=== PATIENT | male | born 1955 | race Caucasian/White ===

== ENCOUNTER 2020-12-01 22:11 | Emergency (ER) | payer MEDICARE, OTHER, MEDICAID, SELFPAY ==
[2020-12-01 22:25] VITALS: BP 166/95; PULSE 129; RESP 26; TEMP 36.8; O2SAT 99
--- NOTE | 2020-12-01 22:46 | DI.RAD.S_ITS ---
PROCEDURE: XR CHEST 1V INDICATIONS: suspected sepsis TECHNIQUE: One view of the chest was acquired. COMPARISON: None. FINDINGS: Surgical changes and devices: None. Lungs and pleura: Lungs are clear. No pleural effusions or pneumothorax. Mediastinum: Mediastinal contours appear normal. Heart size is normal. Bones and chest wall: Chronic left rib fractures. No suspicious bony lesions. Overlying soft tissues appear unremarkable. IMPRESSION: No acute process. Concordant with preliminary interpretation. Dictated by: Ileana Bahena M.D. on 12/02/2020 at 7:55 Approved by: Ileana Bahena M.D. on 12/02/2020 at 7:56
--- NOTE | 2020-12-01 22:46 | DI.RAD.S_ITS ---
PROCEDURE: XR WRIST RT MIN 3V INDICATIONS: R wrist pain/swelling/redness TECHNIQUE: 3 views of the wrist were acquired. COMPARISON: None. FINDINGS: Bones: No fractures or dislocations. No suspicious bony lesions. Subchondral lucencies within the proximal scaphoid, lunate, and capitate are present Scaphoid view: Not requested Soft tissues: No suspicious soft tissue calcifications. IMPRESSION: 1. Subchondral cysts versus enchondromas within the carpal bones. 2. No acute fracture. No osseous lesion. If symptoms and/or clinical suspicion for pathology persist, further assessment with repeat, or advanced imaging (e.g., CT, MRI, or bone scan) may be helpful for further assessment. 3. Concordant with preliminary interpretation. Dictated by: Ileana Bahena M.D. on 12/02/2020 at 7:56 Approved by: Ileana Bahena M.D. on 12/02/2020 at 7:58
--- NOTE | 2020-12-01 22:47 | DI.RAD.S_ITS ---
PROCEDURE: XR HIP RT 1V INDICATIONS: worsening chronic pain after fall TECHNIQUE: 1 views of the hip were acquired. COMPARISON: None. FINDINGS: Bones: No fractures or dislocations. No suspicious bony lesions. The visualized pelvic ring appears intact. ORIF the pelvis has been performed. Mild periarticular osteophyte formation at the right hip joint. Soft tissues: No suspicious soft tissue calcifications or masses. IMPRESSION: 1. Postsurgical sequelae. 2. No acute fracture. No osseous lesion. If symptoms and/or clinical suspicion for pathology persist, further assessment with repeat, or advanced imaging (e.g., CT, MRI, or bone scan) may be helpful for further assessment. 3. Concordant with preliminary interpretation. Dictated by: Ileana Bahena M.D. on 12/02/2020 at 7:59 Approved by: Ileana Bahena M.D. on 12/02/2020 at 7:59
[2020-12-01] MEDS: SODIUM CHLORIDE 0.9% 1,000 ML 1000 ML IV (23:07)
[2020-12-01 23:08] VITALS: PULSE 118; RESP 18; O2SAT 97
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
[2020-12-01 23:15] LABS: Add Manual Diff / Slide Review NO; Basophils Absolute Auto 100 /uL (0-100); Basophils Percent Auto 0.5 % (0-2); Eosinophils Absolute Auto 100 /uL (0-450); Eosinophils Percent Auto 0.7 % (2-4); Hematocrit 42.5 % (41-53); Hemoglobin 14.2 g/dL (13.5-17.5); Lymphocytes Absolute Auto 1700 /uL (1100-4500); Lymphocytes Percent Auto 13.1 % (25-40); Mean Corpuscular HGB Conc 33.5 % (30-36); Mean Corpuscular Hemoglobin 30.3 PG (26-34); Mean Corpuscular Volume 90.7 fL (80-100); Monocytes Absolute Auto 1900 /uL (0-900); Monocytes Percent Auto 14.4 % (3-14); Neutrophils Absolute Auto 9400 /uL (1500-7000); Neutrophils Percent Auto 71.3 % (50-75); Platelet Count 283 X10^3/uL (150-400); Red Blood Cell Count 4.69 X10^6/uL (4.5-5.9); Red Cell Distribution Width 13.8 % (11.6-14.8); White Blood Cell Count 13.2 X10^3/uL (4.5-11.0)
[2020-12-01 23:21] LABS: INR 1.2 (0.9-1.3); Prothrombin Time 13.3 SECONDS (10.1-12.7)
[2020-12-01 23:24] LABS: PTT Partial Thromboplastin Tim 32 SECONDS (26.4-36.2)
[2020-12-01 23:27] LABS: Lactate (Lactic Acid) 1.2 mmol/L (0.7-2.1)
[2020-12-01 23:29] LABS: Alanine Aminotransferase 16 IU/L (<50); Albumin Globulin Ratio 1.1 (1.0-2.8); Alkaline Phosphatase 82 U/L (38-126); Aspartate Aminotransferase 22 IU/L (17-59); BUN Creatinine Ratio 35.2 (6-22); Bilirubin Total 0.9 mg/dL (0.2-1.3); Blood Urea Nitrogen 25 mg/dL (9-20); Calcium 9.4 mg/dL (8.4-10.2); Carbon Dioxide 30 mmol/L (22-32); Chloride 98 mmol/L (98-107); Estimated Glomerular Filt Rate > 60.0 mL/min (>60); Globulin 3.5 g/dL (1.7-4.1); Glucose 144 mg/dL (80-110); HEMOLYSIS < 15 (0-50); Lipase 417 U/L (23-300); Potassium 3.7 mmol/L (3.4-5.1); Sodium 135 mmol/L (137-145); Total Protein 7.5 g/dL (6.3-8.2)
[2020-12-01 23:30] VITALS: PULSE 111; RESP 18; O2SAT 99
[2020-12-01 23:44] LABS: Procalcitonin 0.12 ng/mL (<0.5)
[2020-12-02] VITALS: PULSE 105; RESP 22; O2SAT 99
[2020-12-02 00:20] VITALS: BP 127/82; PULSE 105; RESP 22; O2SAT 99
[2020-12-02] MEDS: CEFAZOLIN 1 GM/50 ML FROZ.PIGGY IV (00:21)
[2020-12-02] MEDS: SODIUM CHLORIDE 0.9% 1,000 ML 1000 ML IV (00:28)
[2020-12-02 00:30] VITALS: PULSE 101; RESP 23; O2SAT 98
[2020-12-02 00:37] LABS: Creatine Kinase 32 U/L (55-170)
[2020-12-02 00:50] LABS: Troponin I < 0.012 ng/mL (0.01-0.034)
[2020-12-02 01:00] VITALS: PULSE 98; RESP 22; O2SAT 99
[2020-12-02 01:26] VITALS: BP 151/77; PULSE 97; RESP 16; O2SAT 99
== END 2020-12-02 01:45 | disposition home or self-care (01) ==
PROVIDERS: Emergency Provider Emergency Medicine; PCP Internal Medicine
DX: L03.113 Cellulitis of right upper limb (principal); D72.829 Elevated white blood cell count, unspecified; R00.0 Tachycardia, unspecified; M25.551 Pain in right hip
CPT/HCPCS: 36415; 71045; 73110; 73501; 80053; 82550; 83605; 83690; 84145; 84484; 85025; 85610; 85730; 87040; 93005; 96361; 96365; 99284

== ENCOUNTER 2022-08-16 17:13 | Emergency (ER) | payer MEDICARE, OTHER, MEDICAID, SELFPAY ==
[2022-08-16 17:48] VITALS: BP 120/73; PULSE 123; RESP 24; TEMP 36.7; O2SAT 94
[2022-08-16 18:26] LABS: Add Manual Diff / Slide Review NO; Basophils Absolute Auto 100 /uL (0-100); Basophils Percent Auto 0.4 % (0-2); Eosinophils Absolute Auto 0 /uL (0-450); Hematocrit 39.7 % (41-53); Hemoglobin 13.3 g/dL (13.5-17.5); Lymphocytes Absolute Auto 700 /uL (1100-4500); Mean Corpuscular HGB Conc 33.6 % (30-36); Mean Corpuscular Hemoglobin 30.5 PG (26-34); Mean Corpuscular Volume 90.8 fL (80-100); Monocytes Absolute Auto 1900 /uL (0-900); Monocytes Percent Auto 10.5 % (3-14); Neutrophils Absolute Auto 15300 /uL (1500-7000); Neutrophils Percent Auto 85.1 % (50-75); Platelet Count 482 X10^3/uL (150-400); Red Blood Cell Count 4.37 X10^6/uL (4.5-5.9)
[2022-08-16 18:35] LABS: Alanine Aminotransferase 39 IU/L (<50); Albumin 3.8 g/dL (3.5-5.0); Alkaline Phosphatase 123 U/L (38-126); Aspartate Aminotransferase 45 IU/L (17-59); BUN Creatinine Ratio 25.5 (6-22); Bilirubin Total 1.1 mg/dL (0.2-1.3); Blood Urea Nitrogen 26 mg/dL (9-20); Calcium 8.9 mg/dL (8.4-10.2); Carbon Dioxide 29 mmol/L (22-32); Chloride 90 mmol/L (98-107); Estimated Glomerular Filt Rate > 60 mL/min (>60); Glucose 125 mg/dL (80-110); HEMOLYSIS < 15 (0-50); Lipase 12 U/L (23-300); Potassium 4.3 mmol/L (3.4-5.1); Sodium 129 mmol/L (137-145); Total Protein 7.8 g/dL (6.3-8.2)
--- NOTE | 2022-08-16 18:51 | ED.GENADULT ---
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 He does not have an indwelling Dorsey catheter. He does not know the results of what this tumor was. He is having some blood in his urine but he feels like things are improving. He is urinating without issues and emptying his bladder without issues. He is here for issues with constipation and cramping. Prior to being discharged after his procedure he did receive an enema. He had a small bowel movement afterwards. Since that time he has been doing enemas and also suppositories and also MiraLax at home. He also started vomiting today. No fevers. Related Data Home Medications Medication Instructions Recorded Confirmed ASCORBIC ACID (VITAMIN C) 1,000 mg PO BID ##0 06/12/12 AZITHROMYCIN (ZITHROMAX Z-CHARLINE) 250 mg PO QDAY ##1 06/12/12 FERROUS SULFATE (#FE-TABS) 325 mg PO Q DAY ##0 06/12/12 MULTIVITAMIN (#MULTIPLE VITAMINS) 1 cap PO Q DAY ##0 06/12/12 WARFARIN SODIUM 4 mg PO QDAY ##0 06/12/12 calcium citrate 200 mg (950 mg) 950 mg PO [facility] ##0 06/12/12 tablet (Calcitrate) hydrocodone 5 mg-acetaminophen 300 1 tab PO TID ##0 06/12/12 mg tablet (Vicodin) Previous Rx's Medication Instructions Recorded cephalexin 500 mg capsule (Keflex) 500 mg PO TID #21 caps 12/02/20 magnesium citrate 300 ml PO DAILY PRN constipation 08/16/22 #296 mL sulfamethoxazole 800 1 tab PO BID 7 days #14 tabs 08/16/22 mg-trimethoprim 160 mg tablet (Bactrim DS) Allergies Allergy/AdvReac Type Severity Reaction Status Date / Time AZITHROMYCIN Allergy Intermediate WELTS Uncoded 01/13/18 12:05 Review of Systems Review of Systems ROS Unobtainable: All systems reviewed & are unremarkable except as noted in HPI and below Patient History Social History (Reviewed 08/17/22 @ 02:37 by ROBIN Martin Smoking Status: Former smoker Smoking Status: Former smoker alcohol intake frequency: 0-2 drinks per day Substance Use Type: does not use Exam Initial Vital Signs Initial Vital Signs: Vital Signs Temperature 98.1 F 08/16/22 17:48 Pulse Rate 123 H 08/16/22 17:48 Respiratory Rate 24 08/16/22 17:48 Blood Pressure 120/73 08/16/22 17:48 Pulse Oximetry 94 08/16/22 17:48 Oxygen Delivery Method 08/16/22 17:48 Const General: cooperative, comfortable and No ill appearing HENMT Head: normal to inspection and normocephalic Resp Effort & Inspection: normal respiratory effort Auscultation: clear to auscultation bilaterally Cardio Rate: regular rate Rhythm: regular rhythm GI Inspection: normal to inspection and non-distended Palpation: soft, No firm, No guarding and tender (Mild diffuse tenderness) Skin General: no rashes or lesions noted Neuro General: patient alert, patient awake and moves all extremities Extrem General: capillary refill normal Course Orders Ordered: ED Orders 08/16/22 17:56 EKG-12 Lead Stat 08/16/22 18:15 Complete Blood Count AUTO DIFF Stat Comprehensive Metabolic Panel Stat Lactate (Lactic Acid) Stat Lipase Stat Procalcitonin Stat 08/16/22 18:54 CT abdomen pelvis w con Stat 08/16/22 20:48 Blood Culture Stat 08/16/22 21:09 Urine Culture Stat Urine Microscopic Stat Discontinued Medications Sodium Chloride (Normal Saline 0.9%) 1,000 mls @ 1,000 mls/hr IV BOLUS ONE Stop: 08/16/22 19:53 Last Infusion: 08/16/22 20:28 Dose: 0 mls/hr Documented By: Admin: 08/16/22 19:17 Dose: 1,000 mls/hr Documented By: GIO Ceftriaxone Sodium 1,000 mg/ (Sodium Chloride) 100 mls @ 200 mls/hr IV NOW ONE Stop: 08/16/22 22:20 Last Infusion: 08/16/22 23:15 Dose: 0 mls/hr Documented By: Admin: 08/16/22 22:41 Dose: 200 mls/hr Documented By: GIO Ibuprofen (Ibuprofen 400 Mg Tablet) 400 mg PO NOW ONE Stop: 08/16/22 22:20 Last Admin: 08/16/22 22:41 Dose: 400 mg Documented By: GIO Magnesium Citrate (Magnesium Citrate 300 Ml Solution) 300 ml PO NOW ONE Stop: 08/16/22 20:43 Last Admin: 08/16/22 21:10 Dose: Not Given Documented By: GIO Mineral Oil (Mineral Oil 1 Each Enema) 1 each NV NOW ONE Stop: 08/16/22 20:43 Last Admin: 08/16/22 20:57 Dose: 1 each Documented By: GIO Vital Signs Vital signs: Vital Signs - 8 hr 08/16/22 23:17 08/16/22 23:17 Pulse Rate 111 H 111 H Respiratory Rate 18 18 Blood Pressure 127/81 127/81 Pulse Oximetry 93 93 Oxygen Delivery Method Room Air Room Air Medical Decision Making Lab Data Lab results reviewed: Yes I reviewed the patient's lab results. Result diagrams: 08/16/22 18:15 08/16/22 18:15 Labs: Lab Results 08/16/22 08/16/22 08/16/22 Range/Units 18:15 18:15 18:15 WBC 18.0 H (4.5-11.0) X10^3/uL RBC 4.37 L (4.5-5.9) X10^6/uL Hgb 13.3 L (13.5-17.5) g/dL Hct 39.7 L (41-53) % MCV 90.8 (80-100) fL MCH 30.5 (26-34) PG MCHC 33.6 (30-36) % RDW 14.0 (11.6-14.8) % Plt Count 482 H (150-400) X10^3/uL Neut % (Auto) 85.1 H (50-75) % Lymph % (Auto) 4.0 L (25-40) % Morgan % (Auto) 10.5 (3-14) % Eos % (Auto) 0.0 L (2-4) % Baso % (Auto) 0.4 (0-2) % Neut # (Auto) 30663 H (1966-9405) /uL Lymph # (Auto) 700 L (4090-8822) /uL Morgan # (Auto) 1900 H (0-900) /uL Eos # (Auto) 0 (0-450) /uL Baso # (Auto) 100 (0-100) /uL Sodium 129 L (137-145) mmol/L Potassium 4.3 (3.4-5.1) mmol/L Chloride 90 L (98-107) mmol/L Carbon Dioxide 29 (22-32) mmol/L BUN 26 H (9-20) mg/dL Creatinine 1.02 (0.66-1.25) mg/dL Estimated GFR > 60 (>60) mL/min BUN/Creatinine Ratio 25.5 H (6-22) Glucose 125 H (80-110) mg/dL Lactate 1.4 (0.7-2.1) mmol/L Calcium 8.9 (8.4-10.2) mg/dL Total Bilirubin 1.1 (0.2-1.3) mg/dL AST 45 (17-59) IU/L ALT 39 (<50) IU/L Alkaline Phosphatase 123 (38-126) U/L Total Protein 7.8 (6.3-8.2) g/dL Albumin 3.8 (3.5-5.0) g/dL Globulin 4.0 (1.7-4.1) g/dL Albumin/Globulin Ratio 1.0 (1.0-2.8) Lipase 12 L (23-300) U/L Procalcitonin (<0.5) ng/mL Urine RBC (0-5/HPF) Urine WBC (0-5/HPF) Ur Squamous Epith Cells (0-5/HPF) Urine Bacteria (None) 08/16/22 08/16/22 Range/Units 18:15 21:09 WBC (4.5-11.0) X10^3/uL RBC (4.5-5.9) X10^6/uL Hgb (13.5-17.5) g/dL Hct (41-53) % MCV (80-100) fL MCH (26-34) PG MCHC (30-36) % RDW (11.6-14.8) % Plt Count (150-400) X10^3/uL Neut % (Auto) (50-75) % Lymph % (Auto) (25-40) % Morgan % (Auto) (3-14) % Eos % (Auto) (2-4) % Baso % (Auto) (0-2) % Neut # (Auto) (0665-4178) /uL Lymph # (Auto) (3501-1798) /uL Morgan # (Auto) (0-900) /uL Eos # (Auto) (0-450) /uL Baso # (Auto) (0-100) /uL Sodium (137-145) mmol/L Potassium (3.4-5.1) mmol/L Chloride (98-107) mmol/L Carbon Dioxide (22-32) mmol/L BUN (9-20) mg/dL Creatinine (0.66-1.25) mg/dL Estimated GFR (>60) mL/min BUN/Creatinine Ratio (6-22) Glucose (80-110) mg/dL Lactate (0.7-2.1) mmol/L Calcium (8.4-10.2) mg/dL Total Bilirubin (0.2-1.3) mg/dL AST (17-59) IU/L ALT (<50) IU/L Alkaline Phosphatase (38-126) U/L Total Protein (6.3-8.2) g/dL Albumin (3.5-5.0) g/dL Globulin (1.7-4.1) g/dL Albumin/Globulin Ratio (1.0-2.8) Lipase (23-300) U/L Procalcitonin 0.12 (<0.5) ng/mL Urine RBC >100/hpf H (0-5/HPF) Urine WBC 1-5/hpf (0-5/HPF) Ur Squamous Epith Cells None seen (0-5/HPF) Urine Bacteria Occasional (0-1) (None) Urine Dip Bedside Urine Glucose Negative Bedside Urine Bilirubin - Negative Bedside Urine Ketone + 15 Urine Specific [place] 1.010 Bedside Urine Occult Blood +++ Bedside Urine pH 6 Bedside Urine Protein ++ 100 Bedside Urine Urobilinogen 2+ 4mg Bedside Urine Nitrite + Positive Bedside Urine Leukocytes + 70 Esterase Point of care testing: Urine Dip Bedside Urine Glucose Negative Bedside Urine Bilirubin - Negative Bedside Urine Ketone + 15 Urine Specific [place] 1.010 Bedside Urine Occult Blood +++ Bedside Urine pH 6 Bedside Urine Protein ++ 100 Bedside Urine Urobilinogen 2+ 4mg Bedside Urine Nitrite + Positive Bedside Urine Leukocytes + [address] scan - abdomen/pelvis: Radiologist's Impression: [address] [address] [address] Scan Report Signed Patient: Bradley José#: [id number] : 1955 Acct:[id number] Age/Sex: 66 / M Date of Service: 08/16/22 Loc: ED Accession Number: [id number] ?? Procedure: CT abdomen pelvis w con Ordering Provider: Jaime Wyatt D.O. PROCEDURE:? CT ABDOMEN PELVIS W CON ? INDICATIONS:? Recent bladder surgery, generalized abdominal pain/constipat ? TECHNIQUE:? After the administration of intravenous contrast, axial sections acquired from the lung bases to the pubic symphysis.? Coronal and sagittal reformats were performed.? For radiation dose reduction, the following was used:? automated exposure control, adjustment of mA and/or kV according to patient size.? ? COMPARISON:? [facility], CT, CHEST/ABD/PELVIS W/CON ([facility]), 11/25/2011, 1:09. ? FINDINGS: ? Image quality:? Diagnostic? ? Lung bases:? Lung bases are clear.? Small hiatal hernia. Heart:? No significant findings. ? ABDOMEN: Liver:? Unremarkable.? ? Gallbladder:? Gallbladder contains multiple hypodense gallstones.? No evidence for gallbladder wall thickening or pericholecystic inflammation.? ? Biliary ducts:? No biliary ductal dilatation. ? Pancreas:? Unremarkable.? ? Spleen:? Unremarkable.? ? Adrenal Glands:? Unremarkable.? ? Kidneys and Ureters:? Left kidney is unremarkable in appearance.? No hydronephrosis or perinephric stranding.? There is mild-moderate right hydronephrosis with minimal enhancement of the right renal pelvis and visualized portions of the right ureter.? There is mild hydroureter on the right.? No definite intraluminal filling defect seen.? Distal right ureter extends into the lower pelvis and extends into the surgical site.? Slightly asymmetric renal cortical enhancement between the right kidney in the left kidney with the right kidney being less prominent.? ? ? Stomach and Bowel:? Large amount of fecal material seen throughout the colon.? There is mild distention of the colon secondary to fecal material.? No evidence to suggest abnormal colonic wall thickening or inflammation.? There also multiple loops of fluid-filled small bowel more proximally.? No definite findings to suggest small bowel obstruction.? Scattered colonic diverticulosis. Peritoneum:? No evidence for organized fluid collection seen.? No evidence for free air. ? Ventral Wall: ? No ventral hernia seen.? Abdominal Nodes:? No retroperitoneal or mesenteric adenopathy by size criteria.? Vessels:? Scattered atherosclerotic calcifications of the abdominal aorta and iliac vessels without aneurysmal dilatation.? The inferior vena cava appears patent.? ? PELVIS: Pelvic Organs:? There is prostatomegaly.? ? Bladder:? The urinary bladder not well visualized and appears heterogeneous measuring approximately 6.4 x 8.3 cm in axial cross-sectional dimension (image 64/series 2) which demonstrates areas of fluid attenuation as well as areas of irregular hyperattenuation and soft tissue densities as well as irregular wall thickening.? The? areas of irregularity and thickening is more prominent on the right side of the bladder.? This likely represents postsurgical changes of the urinary bladder as noted in patient history.? Hyperdense material may represent small areas of hemorrhage.? No evidence to suggest active extravasation.? No internal locules of gas.? The wall irregularity may be related to postsurgical changes and/or tumor. Pelvic Nodes: No enlarged lymph nodes.? Miscellaneous: No inguinal hernias are seen. ? ? ? Bones:? There are healed fracture deformities involving the pelvis and sacrum with associated postsurgical changes.? No acute fracture seen.? Stable alignment of the lower lumbar spine with relative anterolisthesis of L5 in relationship to L4 and S1.? Multilevel spondylosis.? No acute compression fracture. ? IMPRESSION:? ? 1. Irregular, ill-defined urinary bladder with irregular wall thickening likely representing postsurgical changes from reported history of recent bladder procedure to remove neoplasm.? Heterogeneous appearance and scattered hyperdense components may represent postsurgical changes with associated hemorrhagic products.? No evidence to suggest active extravasation.? No internal locules of gas suggest superimposed infection. ? ? 2. Moderate right hydroureteronephrosis with mild enhancement of the right renal pelvis and right ureter.? Distal right ureter extends into the region of presumed postsurgical changes of the urinary bladder which may explain obstructive findings.? Additionally, the visualized renal pelvis and ureteral enhancement may represent concurrent infectious uropathy.? Recommend clinical and laboratory correlation. ? 3. Large amount of fecal material seen throughout the distended colon as well as multiple fluid-filled loops of small bowel.? Findings may represent sequela of constipation or post-operative ileus.? No definite findings to of bowel obstruction at this time. ? 4. Scattered colonic diverticulosis without evidence for acute diverticulitis. ? 5. Multiple hypodense gallstones without CT evidence for acute cholecystitis. ? 6. Healed fracture deformities of remote pelvic and sacral fractures with associated postsurgical changes. ? 7. Multilevel spondylosis. ? 8. Small hiatal hernia . ? Findings were discussed telephonically with Dr. Wyatt at 2018 hrs. ? ? Dictated by: Jermain Conley M.D. on 08/16/2022 at 19:42 ? ? Approved by: Jermain Conley M.D. on 08/16/2022 at 20:30 MDM Narrative Medical decision making narrative: Patient is nontoxic appearing. He did have diffuse abdominal tenderness but certainly does not have a surgical abdomen. Is not distended. He does have what appears to be a urinary tract infection that is nitrite positive. CT scan concerning for ascending infection on the right. This would support his leukocytosis. He is afebrile. Tolerating oral intake. Was given Rocephin and was sent home with prescription for antibiotics. CT scan shows constipation which also fits is presentation. Was given an enema here in the ER but had no bowel movement. He states that he does not feel like there is stool in his rectal vault. Will discharge home with a prescription for antibiotics and also a prescription for magnesium citrate. They were told that they could purchase this [id number]. They will continue to try laxatives at home to he has a bowel movement. He was able to walk to the bathroom. Trial antibiotics at home. Considered admitting to the hospital however did not feel that was specifically warranted today as he was tolerating oral intake and there was a plan for his constipation. He was given return precautions. He expressed understanding and agreement. Discharge Plan Departure Patient Disposition: Home Clinical Impression: Constipation, Urinary tract infection Instructions: DI for Urinary Tract Infection (UTI), DI for Constipation Activity Restrictions/Additional Instructions: I do recommend that you continue with laxatives discussed. You can continue with the enemas as well once you feel it is appropriate. It also appears that you have a urinary tract infection today. Start taking the antibiotics as directed. They were transmitted to [facility]. A urine culture was pending at the time of your discharge and we will contact you if we need to change these antibiotics. Return to the emergency department for any new or worsening symptoms. Prescriptions: New sulfamethoxazole-trimethoprim [Bactrim DS] 800-160 mg tablet 1 tab PO BID 7 Days Qty: 14 0RF magnesium citrate Solution 300 ml PO DAILY PRN (Reason: constipation) Qty: 296 0RF No Action hydrocodone-acetaminophen [Vicodin] 5 MG/300 MG tablet 1 tab PO TID Qty: 0 AZITHROMYCIN (ZITHROMAX Z-CHARLINE) 250 mg PO QDAY Qty: 1 WARFARIN SODIUM 4 mg PO QDAY Qty: 0 calcium citrate [Calcitrate] 200 MG tablet 950 mg PO [facility] Qty: 0 FERROUS SULFATE (#FE-TABS) 325 mg PO Q DAY Qty: 0 MULTIVITAMIN (#MULTIPLE VITAMINS) 1 cap PO Q DAY Qty: 0 ASCORBIC ACID (VITAMIN C) 1,000 mg PO BID Qty: 0 cephalexin [Keflex] 500 mg capsule 500 mg PO TID Qty: 21 0RF Referrals: Bradley Dennis MD [Primary Care Provider] - Visit Report Forms: Patient Portal/API
--- NOTE | 2022-08-16 18:54 | DI.CT.S_ITS ---
PROCEDURE: CT ABDOMEN PELVIS W CON INDICATIONS: Recent bladder surgery, generalized abdominal pain/constipat TECHNIQUE: After the administration of intravenous contrast, axial sections acquired from the lung bases to the pubic symphysis. Coronal and sagittal reformats were performed. For radiation dose reduction, the following was used: automated exposure control, adjustment of mA and/or kV according to patient size. COMPARISON: [facility], CT, CHEST/ABD/PELVIS W/CON ([facility]), 11/25/2011, 1:09. FINDINGS: Image quality: Diagnostic Lung bases: Lung bases are clear. Small hiatal hernia. Heart: No significant findings. ABDOMEN: Liver: Unremarkable. Gallbladder: Gallbladder contains multiple hypodense gallstones. No evidence for gallbladder wall thickening or pericholecystic inflammation. Biliary ducts: No biliary ductal dilatation. Pancreas: Unremarkable. Spleen: Unremarkable. Adrenal Glands: Unremarkable. Kidneys and Ureters: Left kidney is unremarkable in appearance. No hydronephrosis or perinephric stranding. There is mild-moderate right hydronephrosis with minimal enhancement of the right renal pelvis and visualized portions of the right ureter. There is mild hydroureter on the right. No definite intraluminal filling defect seen. Distal right ureter extends into the lower pelvis and extends into the surgical site. Slightly asymmetric renal cortical enhancement between the right kidney in the left kidney with the right kidney being less prominent. Stomach and Bowel: Large amount of fecal material seen throughout the colon. There is mild distention of the colon secondary to fecal material. No evidence to suggest abnormal colonic wall thickening or inflammation. There also multiple loops of fluid-filled small bowel more proximally. No definite findings to suggest small bowel obstruction. Scattered colonic diverticulosis. Peritoneum: No evidence for organized fluid collection seen. No evidence for free air. Ventral Wall: No ventral hernia seen. Abdominal Nodes: No retroperitoneal or mesenteric adenopathy by size criteria. Vessels: Scattered atherosclerotic calcifications of the abdominal aorta and iliac vessels without aneurysmal dilatation. The inferior vena cava appears patent. PELVIS: Pelvic Organs: There is prostatomegaly. Bladder: The urinary bladder not well visualized and appears heterogeneous measuring approximately 6.4 x 8.3 cm in axial cross-sectional dimension (image 64/series 2) which demonstrates areas of fluid attenuation as well as areas of irregular hyperattenuation and soft tissue densities as well as irregular wall thickening. The areas of irregularity and thickening is more prominent on the right side of the bladder. This likely represents postsurgical changes of the urinary bladder as noted in patient history. Hyperdense material may represent small areas of hemorrhage. No evidence to suggest active extravasation. No internal locules of gas. The wall irregularity may be related to postsurgical changes and/or tumor. Pelvic Nodes: No enlarged lymph nodes. Miscellaneous: No inguinal hernias are seen. Bones: There are healed fracture deformities involving the pelvis and sacrum with associated postsurgical changes. No acute fracture seen. Stable alignment of the lower lumbar spine with relative anterolisthesis of L5 in relationship to L4 and S1. Multilevel spondylosis. No acute compression fracture. IMPRESSION: 1. Irregular, ill-defined urinary bladder with irregular wall thickening likely representing postsurgical changes from reported history of recent bladder procedure to remove neoplasm. Heterogeneous appearance and scattered hyperdense components may represent postsurgical changes with associated hemorrhagic products. No evidence to suggest active extravasation. No internal locules of gas suggest superimposed infection. 2. Moderate right hydroureteronephrosis with mild enhancement of the right renal pelvis and right ureter. Distal right ureter extends into the region of presumed postsurgical changes of the urinary bladder which may explain obstructive findings. Additionally, the visualized renal pelvis and ureteral enhancement may represent concurrent infectious uropathy. Recommend clinical and laboratory correlation. 3. Large amount of fecal material seen throughout the distended colon as well as multiple fluid-filled loops of small bowel. Findings may represent sequela of constipation or post-operative ileus. No definite findings to of bowel obstruction at this time. 4. Scattered colonic diverticulosis without evidence for acute diverticulitis. 5. Multiple hypodense gallstones without CT evidence for acute cholecystitis. 6. Healed fracture deformities of remote pelvic and sacral fractures with associated postsurgical changes. 7. Multilevel spondylosis. 8. Small hiatal hernia . Findings were discussed telephonically with Dr. Wyatt at 2018 hrs. Dictated by: Jermain Conley M.D. on 08/16/2022 at 19:42 Approved by: Jermain Conley M.D. on 08/16/2022 at 20:30
[2022-08-16] MEDS: SODIUM CHLORIDE 0.9% 1,000 ML 1000 ML IV (19:17)
[2022-08-16 20:36] LABS: Lactate (Lactic Acid) 1.4 mmol/L (0.7-2.1)
[2022-08-16 20:54] LABS: Procalcitonin 0.12 ng/mL (<0.5)
[2022-08-16] MEDS: MINERAL OIL 1 EACH ENEMA PR (20:57)
[2022-08-16 21:20] LABS: Bacteria Urine Occasional (0-1); RBC Urine >100/HPF (0-5/HPF); Squamous Epithelial Cell Urine None Seen (0-5/HPF); WBC Urine 1-5/HPF (0-5/HPF)
--- NOTE | 2022-08-16 21:45 | PC.NURSE ---
pt states no relief with enema given
[2022-08-16] MEDS: cefTRIAXone 1,000 MG in SODIUM CHLORIDE 0.9% 100 ML 200 MG IV (22:41)
[2022-08-16] MEDS: IBUPROFEN 400 MG TABLET PO (22:41)
[2022-08-16 23:17] VITALS: BP 127/81; PULSE 111; RESP 18; O2SAT 93
== END 2022-08-16 23:22 | disposition home or self-care (01) ==
PROVIDERS: Emergency Medicine; Emergency Provider Emergency Medicine; PCP Internal Medicine
DX: K59.00 Constipation, unspecified (principal); N39.0 Urinary tract infection, site not specified; R10.84 Generalized abdominal pain
CPT/HCPCS: 36415; 74177; 80053; 81003; 81015; 83605; 83690; 84145; 85025; 87040; 87086; 96361; 96365; 99284; J0696; Q9967